=== PATIENT | female | born 1945 | race Caucasian/White ===

== ENCOUNTER → 2018-02-25 | Outpatient (CLI) | payer MEDICARE ==
--- NOTE | 2018-02-27 09:33 | MM ---
Reason for exam: screening (asymptomatic). Last mammogram was performed 1 year and 4 months ago. History: Patient is postmenopausal. Physical Findings: A clinical breast exam by your physician is recommended on an annual basis and results should be correlated with mammographic findings. MG 3D Screening Mammo W/Cad Bilateral CC and MLO view(s) were taken. Prior study comparison: October 30, 2016, bilateral MG screening mammo w CAD. October 24, 2015, bilateral MG screening mammo w CAD. There are scattered fibroglandular densities. No suspicious abnormality. No significant changes when compared with prior studies. ASSESSMENT: Negative, BI-RAD 1 RECOMMENDATION: Routine screening mammogram of both breasts in 1 year.
== END | disposition home or self-care (01) ==
LOC: RADMAMWWP 13:05
PROVIDERS: ATTEND Family Medicine
DX: Z12.31 Encounter for screening mammogram for malignant neoplasm of breast (principal)
CPT/HCPCS: 77063; 77067

== ENCOUNTER → 2019-03-17 | Outpatient (CLI) | payer MEDICARE ==
--- NOTE | 2019-03-18 09:39 | MM ---
Reason for exam: screening (asymptomatic). Last mammogram was performed 1 year and 1 month ago. History: Patient is postmenopausal. Physical Findings: A clinical breast exam by your physician is recommended on an annual basis and results should be correlated with mammographic findings. MG 3D Screening Mammo W/Cad Bilateral CC and MLO view(s) were taken. Prior study comparison: February 25, 2018, bilateral MG 3d screening mammo w/cad. October 30, 2016, bilateral MG screening mammo w CAD. The breast tissue is heterogeneously dense. This may lower the sensitivity of mammography. There is chronic nodularity bilaterally. There is no discrete abnormality. ASSESSMENT: Benign, BI-RAD 2 RECOMMENDATION: Routine screening mammogram of both breasts in 1 year.
== END | disposition home or self-care (01) ==
LOC: RADMAMWWP 13:28
PROVIDERS: ATTEND Family Medicine
DX: Z12.31 Encounter for screening mammogram for malignant neoplasm of breast (principal)
CPT/HCPCS: 77063; 77067

== ENCOUNTER → 2021-01-04 | Outpatient (CLI) | payer MEDICARE ==
--- NOTE | 2021-01-05 13:18 | MM ---
Reason for exam: screening (asymptomatic). Last mammogram was performed 1 year and 10 months ago. History: Patient is postmenopausal. Physical Findings: A clinical breast exam by your physician is recommended on an annual basis and results should be correlated with mammographic findings. MG 3D Screening Mammo W/Cad Bilateral CC and MLO view(s) were taken. Prior study comparison: March 17, 2019, bilateral MG 3d screening mammo w/cad. February 25, 2018, bilateral MG 3d screening mammo w/cad. There are scattered fibroglandular densities. Finding #1: There is a new 13 x 5 mm obscured oval mass located 7-8 cm from the nipple in the middle position of the right breast, CC 30/56 questionable MLO 32/82. Finding #2: There are typically benign vascular calcifications in both breasts. There is a chronic nodularity in the right breast. Asymmetric breast tissue left breast, stable. ASSESSMENT: Incomplete: need additional imaging evaluation, BI-RAD 0 RECOMMENDATION: Special view mammogram of the right breast. If lesion persists on supplemental views, image directed ultrasound is recommended. [facility] will attempt to contact patient to return for supplemental views and ultrasound if indicated.
== END ==
LOC: RADMAMWWP 15:32
PROVIDERS: ATTEND Family Medicine
DX: Z12.31 Encounter for screening mammogram for malignant neoplasm of breast (principal); Z78.0 Asymptomatic menopausal state
CPT/HCPCS: 77063; 77067

== ENCOUNTER → 2021-01-18 | Outpatient (CLI) | payer MEDICARE ==
--- NOTE | 2021-01-18 14:55 | MM ---
Reason for exam: additional evaluation requested from abnormal screening. Last mammogram was performed less than 1 month ago. History: Patient is postmenopausal. Physical Findings: Nurse did not find any significant physical abnormalities on exam. MG 3D Work Up W/Cad RT Spot compression CC, spot compression MLO, and LM view(s) were taken of the right breast. Prior study comparison: January 04, 2021, bilateral MG 3d screening mammo w/cad. March 17, 2019, bilateral MG 3d screening mammo w/cad. The breast tissue is heterogeneously dense. This may lower the sensitivity of mammography. Focal asymmetry, partially disperses with compression. No suspicious underlying spiculated or lobular masses. These results were verbally communicated with the patient and result sheet given to the patient on 01/18/21. ASSESSMENT: Probably benign, BI-RAD 3 RECOMMENDATION: Follow-up diagnostic mammogram of the right breast in 6 months.
== END ==
LOC: RADMAMWWP 13:33
PROVIDERS: ATTEND Family Medicine
DX: R92.8 Other abnormal and inconclusive findings on diagnostic imaging of breast (principal); Z78.0 Asymptomatic menopausal state
CPT/HCPCS: 77065; G0279; 77061

== ENCOUNTER → 2021-02-10 | Outpatient (CLI) | payer MEDICARE ==
--- NOTE | 2021-02-10 11:24 | USB ---
Reason for exam: clinical finding. History: Patient is postmenopausal. Physical Findings: Nurse did not find any significant physical abnormalities on exam. US Breast RT Right complete breast ultrasound includes all four quadrants, the retroareolar region and axilla. Finding demonstrates a 0.4 x 0.5 x 0.2cm oval, tiny cyst cluster at 8 o'clock, a 0.5 x 0.4 x 0.2cm oval, hypoechoic lesion at 11:30 may correspond to the mammographic finding, biopsy recommended and a 1.8 x 1.2 x 1.1cm lymph node at the axilla. These results were verbally communicated with the patient and result sheet given to the patient on 02/10/21. ASSESSMENT: Suspicious, BI-RAD 4 RECOMMENDATION: Ultrasound core biopsy of the right breast. Patient undecided is she wants a biopsy. Patient and daughter will follow up with Dr. Mcmahon. Notified Dr. Mcmahon to follow up with the patient. Called Dr. Mcmahon's office with mammographic findings. PRELIMINARY REPORT CALLED AND FAXED TO DR. MCMAHON ON 02/10/21.
== END | disposition home or self-care (01) ==
LOC: RADUSWWP 09:36
PROVIDERS: ATTEND Family Medicine
DX: Z78.0 Asymptomatic menopausal state (principal)

== ENCOUNTER → 2021-03-27 | Day surgery (SDC) | payer MEDICARE ==
[2021-03-27 12:35] VITALS: RESP 18; TEMP 98.5
--- NOTE | 2021-03-27 13:45 | USB ---
EXAMINATION TYPE: US biopsy breast VAD RT DATE OF EXAM: 03/27/2021 CLINICAL HISTORY: R92.8 Abnormal findings of breast. TECHNIQUE: Ultrasound guided core biopsy of right breast. COMPARISON: NONE FINDINGS: The procedure of ultrasound guided core biopsy was explained to the patient. Benefits, alternatives, and risks were discussed. An informed consent was then obtained. The patient was placed in supine positioning for imaging and for the procedure. The overlying skin was prepped and draped in usual sterile fashion. Lidocaine buffered with bicarbonate was used as anesthetic into the skin and subcutaneous tissue up to area of concern in the right breast at 11:00, zone BC. A skin nery was made with surgical scalpel. Under ultrasound guidance, a [employer] biopsy gun device was used to obtain 3 core samples. Following this, a biopsy clip was placed in lesion. The patient tolerated the procedure well without any immediate complication. The patient was kept in the radiology department for short stay after the procedure and then discharged home in stable condition. IMPRESSION: 1. Successful, uncomplicated ultrasound guided core biopsy of area of concern in the right breast, full pathology results to follow. 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 Negative for in situ or invasive malignancy. Recommendation Follow up ultrasound of the right breast in 6 months. TORO
--- NOTE | 2021-03-27 14:11 | MM ---
Right DIGITAL DIAGNOSTIC MAMMOGRAM WITH CAD 2-D REASON FOR EXAMINATION: Post ultrasound-guided right breast biopsy TECHNIQUE: Right craniocaudal and mediolateral oblique views were obtained digitally. FINDINGS: B (scattered fibroglandular densities) . There is a biopsy marker clip at the upper outer quadrant of the right breast at approximately 11:00, 6 cm from the nipple. IMPRESSION: 1. Successful placement of right ultrasound-guided biopsy marker clip. No mammographic evidence of ma lignancy. 2. Please see ultrasound-guided breast biopsy, right breast same date. Procedure related
[2021-03-27 14:27] VITALS: BP 139/62; PULSE 68
== END ==
LOC: RADUSWWP 12:10
PROVIDERS: ATTEND Family Medicine
DX: N64.89 Other specified disorders of breast (principal); N60.11 Diffuse cystic mastopathy of right breast; R92.8 Other abnormal and inconclusive findings on diagnostic imaging of breast
CPT/HCPCS: 88305; 77065; 19083; A4648; J2001

== ENCOUNTER → 2024-02-17 | Outpatient (CLI) | payer MEDICARE ==
[2024-02-17 13:17] LABS: African American GFR (CKD) >90 (>60 ml/min/1.73 sqM); Blood Urea Nitrogen 23 mg/dL (7-17); Non-African American GFR(CKD) 89 (>60 ml/min/1.73 sqM)
--- NOTE | 2024-02-17 21:40 | CT ---
EXAMINATION TYPE: CT urogram wo/w con, CT pelvis wo con, CT femur LT wo con DATE OF EXAM: 02/17/2024 COMPARISON: None HISTORY: 78-year-old female R31.9 HEMATURIA,M16.12 OA L Hip,M79.652 Pain L Hip, hematuria (accession [id number]), pain in left thigh (accession [id number]), left hip pain (accession [id number]) TECHNIQUE: Contiguous axial scanning of the abdomen and pelvis performed without and with IV Contrast , patient injected with 100 ml mL of Isovue 370. Delayed images through the kidneys and bladder were obtained. Coronal/sagittal reconstructions performed. 3-D reconstructions generated on a dedicated in dependent workstation. Subsequent scanning of both the pelvis and left femur with coronal and sagittal reconstructions. 3-D reconstructions generated of the left femur on the dedicated independent workstation. CT DLP: 2946.8 (accession [id number]), 847.3 (accession [id number]), 506.4 (accession [id number]) mGycm Automated exposure control for dose reduction was used. FINDINGS: CT UROGRAM: The heart is upper limits of normal in size without pericardial effusion. Strandy atelectasis in the lower lungs. Small hiatal hernia. Liver mildly enlarged at 18.5 cm. No focal lesions seen. Portal venous system is patent. No biliary d uctal dilatation. No abnormal gallbladder distention. A few small layering gallstones are noted. Right adrenal gland, spleen with anterior splenule, and pancreas within normal limits. There is a low-density nodule of the left adrenal gland measuring 2.4 cm with borderline attenuation near 10 Hounsfield units, favored adrenal adenoma. Six-month follow-up CT to reassess. Kidneys show no evidence for nephrolithiasis. There are bilateral parapelvic cysts present measuring up to 2.3 cm. No hydronephrosis or abnormal filling defect within the renal collecting systems. Satisfactory opacification along the bilateral ureters. Moderate atherosclerotic calcifications infrarenal abdominal aorta and common iliac arteries. No dilated small bowel, free fluid, or free air. No mesenteric or retroperitoneal lymphadenopathy. Normal appendix. Mild stool burden. No pericolonic inflammatory change. More moderate stool within th e rectum. Bladder is collapsed. Later phases of imaging show no definite mural abnormality of the bladder. Smal l pelvic phleboliths are noted. Uterus is anteverted. There appears to be some thickening of the endometrium estimated up to 1.1 cm, abnormal in a postmenopausal female. Small, postmenopausal ovaries. No abnormal fluid collection in t he pelvis or pelvic lymphadenopathy. BONES: S-shaped scoliotic curvature. Moderate degenerative disc disease mid to lower lumbar spine and hypert rophic facet arthropathy throughout the lumbar spine. PELVIS AND LEFT FEMUR: There is osteopenia without a displaced fracture seen. There is end-stage [id number] OA in both hips with complete loss of axial cartilage and joint space . More severe subchondral sclerosis and cystic changes present on the left. No significant joint effusion. No knee joint effusion. Extensor mechanism appears intact. No periostitis or osteolysis or acute frac ture seen. Slight asymmetric left thigh muscular atrophy. IMPRESSION: CT UROGRAM: 1. BILATERAL PARAPELVIC CYSTS MEASURING UP TO 2.3 CM. NO SUSPICIOUS RENAL MASS, NEPHROLITHIASIS, HYDR ONEPHROSIS, OR ABNORMAL DEFECT IN THE RENAL COLLECTING SYSTEMS. 2. There appears to be abnormal endometrial thickening in a postmenopausal female measuring up to 1.1 cm. Correlate to assess if the patient's reported hematuria corresponds to vaginal bleeding. Recomme nd pelvic ultrasound to further assess and consider [employer]ICIAN evaluation. 3. Small hiatal hernia and cholelithiasis. 4. A 2.4 cm left adrenal nodule, favored to represent an adrenal adenoma though the attenuation is ivana rderline. Recommend six-month follow-up CT to reassess. PELVIS AND LEFT FEMUR: 5. No acute fracture seen. 6. End-stage, [id number] left greater than right hip OA.
== END | disposition home or self-care (01) ==
LOC: RADCTMAIN 12:20
PROVIDERS: ATTEND Family Medicine
DX: Z00.00 Encounter for general adult medical examination without abnormal findings (principal); M16.0 Bilateral primary osteoarthritis of hip; K44.9 Diaphragmatic hernia without obstruction or gangrene; K80.20 Calculus of gallbladder without cholecystitis without obstruction; E27.8 Other specified disorders of adrenal gland; R31.9 Hematuria, unspecified; R93.89 Abnormal findings on diagnostic imaging of other specified body structures; Z78.0 Asymptomatic menopausal state
CPT/HCPCS: 82565; 84520; 72192; 74178; 36415; 74400; 73700; Q9967

== ENCOUNTER → 2024-03-24 | Outpatient (CLI) | payer MEDICARE ==
--- NOTE | 2024-03-24 16:13 | US ---
EXAMINATION TYPE: US transvaginal DATE OF EXAM: 03/24/2024 COMPARISON: CT 02/17/24 CLINICAL INDICATION: Female, 78 years old with history of N89.8 CYST VAGINA; thickened endometrium on CT TECHNIQUE: Transvaginal (TV). Transvaginal sonographic images were medically necessary to better as sess the following anatomy: Endometrium Date of LMP: post-heri EXAM MEASUREMENTS: Uterus: 10.5x4.8x4.5 cm Endometrial Stripe: 1.3 cm Right Ovary: obscured by bowel Left Ovary: obscured by bowel 1. Uterus: Anteverted heterogenous cervical canal 2. Endometrium: thickened endo again seen, heterogenous area adjacent to endo may represent a fibroi d measurin.6x1.5x1.5cm 3. Right Ovary: Obscured by overlying bowel gas 4. Left Ovary: Obscured by overlying bowel gas 5. Bilateral Adnexa: Obscured by overlying bowel gas 6. Posterior cul-de-sac: wnl patient unable to tolerate exam positioning to allow free movement of transducer. Exam limited by pat ient positioning and pain IMPRESSION: 1. Thickened endometrial canal. This may be adjacent to a posterior uterine fibroid. Additional kristine p is recommended. Neoplasm not excluded. 2. Examination is limited due to patient tolerance of the exam.
== END ==
LOC: CPPFTMAIN 09:17
PROVIDERS: ATTEND Internal Medicine
DX: J98.11 Atelectasis (principal); N89.8 Other specified noninflammatory disorders of vagina; R93.89 Abnormal findings on diagnostic imaging of other specified body structures
CPT/HCPCS: 76830; 94060; 94726; 94729

== ENCOUNTER → 2024-05-23 | Outpatient (CLI) | payer MEDICARE | END | disposition home or self-care (01) | LOC: LABWHC1 10:51 | PROVIDERS: ATTEND Family Medicine | DX: Z01.818 Encounter for other preprocedural examination (principal); I49.3 Ventricular premature depolarization | CPT/HCPCS: 36415; 93005 ==